=== PATIENT | female | born 1970 | race Caucasian/White ===

== ENCOUNTER 2020-07-24 | Outpatient (REF) | payer OTHER, SELFPAY ==
[2020-07-24 11:44] LABS: MANUAL DIFF FLAG NO
[2020-07-24 11:47] LABS: Basophils Percent Auto 0.4 % (0-2); Eosinophils Percent Auto 0.8 % (0-4); Hematocrit 38.6 % (37-47); Hemoglobin 12.2 g/dl (12.0-16.0); Imm Gran Abs Auto 0.03 X10*3/uL (0.00-0.03); Imm Gran Pct Auto 0.6 % (0.0-0.4); Lymphocytes Absolute Auto 1.2 X10*3/uL (1.2-4.9); Lymphocytes Percent Auto 22.5 % (20-40); Mean Corpuscular HGB Conc 31.6 g/dl (31.0-35.0); Mean Corpuscular Hemoglobin 28.1 pg (27.0-33.0); Mean Corpuscular Volume 88.9 fL (80-98); Mean Platelet Volume 11.6 fL (9.4-12.3); Monocytes Absolute Auto 0.3 X10*3/uL (0.1-1.2); Monocytes Percent Auto 6.3 % (2-11); Neutrophils Absolute Auto 3.6 X10*3/uL (2.0-8.3); Neutrophils Percent Auto 69.4 % (45-73); Platelet Count 214 X10*3/uL (160-400); Red Blood Count 4.34 X10*6/uL (4.20-5.50); Red Cell Distribution Width 13.7 % (11.0-16.0); White Blood Count 5.1 X10*3/uL (4.8-10.8)
[2020-07-24 12:13] LABS: Alanine Aminotransferase 15 U/L (0-31); Albumin Level 4.3 g/dL (3.5-5.0); Alkaline Phosphatase 51 U/L (39-117); Anion Gap 12 (12-20); Aspartate Amino Transferase 17 U/L (5-31); Bilirubin Total 0.6 mg/dL (0.0-1.0); Blood Urea Nitrogen 10 mg/dL (9-16); Calcium 8.7 mg/dL (8.4-10.2); Carbon Dioxide 23 mmol/L (22-29); Chloride 109 mmol/L (96-108); Cholesterol 220 mg/dL; Estimated Glomerular Filt Rate > 60; Glucose Random 98 mg/dL (60-115); HDL Cholesterol 55 mg/dL; LDL Cholesterol Calculated 153 mg/dl; Potassium 4.4 mmol/l (3.3-5.1); Sodium 140 mmol/L (135-145); Total Protein 7.3 g/dL (6.5-8.0); Triglycerides 64 mg/dL
[2020-07-24 12:35] LABS: Thyroid Stimulating Hormone 1.84 uIU/mL (0.32-4.0)
[2020-07-24 12:37] LABS: Vitamin B12 506 pg/mL (200-900)
== END 2020-07-24 00:01 | disposition home or self-care (01) ==
LOC: HO.LAB
PROVIDERS: PCP Internal Medicine; Visit Provider Internal Medicine
DX: R53.83 Other fatigue (principal); E78.00 Pure hypercholesterolemia, unspecified; M79.10 Myalgia, unspecified site; Z79.899 Other long term (current) drug therapy
CPT/HCPCS: 36415; 80053; 80061; 82607; 84443; 85025

== ENCOUNTER 2020-07-24 09:56 | Outpatient (REF) | payer OTHER, SELFPAY ==
--- NOTE | 2020-07-24 10:02 | MM_ITS ---
EXAMINATION: MM SCREENING DIGITAL BREAST TOMOSYNTHESIS, BILATERAL CLINICAL INFORMATION: Screening. Asymptomatic. The lifetime risk of breast cancer based on the Tyrer-Cuzick Model is 22.5%. COMPARISON: Mammography: 04/03/2018, 10/12/2016, and 10/07/2015 TECHNIQUE: Digital breast tomosynthesis is performed in both the craniocaudal and mediolateral oblique views along with computer-aided detection (CAD). Synthesized 2D images are generated from the tomosynthesis. FINDINGS: The breasts are extremely dense, which lowers the sensitivity of mammography (ACR BI-RADS breast composition Category d). Within the right breast superiorly approximately 4 cm from nipple, there is a 1.3 cm partially circumscribed density. No definite spiculation or suspicious calcifications identified. About the deep medial aspect of the left breast approximately 8 cm from the nipple, there are 3 adjacent densities, the largest of which measures approximately 1.3 x 0.7 cm in size with the other 2 measuring approximately 7 and 6 mm in diameter. No suspicious grouping of calcifications. MM/MM tomosynthesis screening BI IMPRESSION: Bilateral breast densities for which further evaluation with ultrasound is recommended. IMPRESSION: Bilateral breast densities for further evaluation, as described. ASSESSMENT: BI-RADS 0: Incomplete - Need additional imaging evaluation. RECOMMENDATION: Bilateral breast ultrasound.
== END 2020-07-24 09:57 | disposition home or self-care (01) ==
LOC: HO.MAMMO 09:56
PROVIDERS: PCP Internal Medicine; Visit Provider Internal Medicine
DX: Z12.31 Encounter for screening mammogram for malignant neoplasm of breast (principal)
CPT/HCPCS: 77063; 77067

== ENCOUNTER → 2020-09-03 08:39 | Outpatient (BNVA) | payer OTHER, SELFPAY | PROVIDERS: PCP Internal Medicine; Visit Provider Internal Medicine Gastroenterology | DX: Z76.89 Persons encountering health services in other specified circumstances (principal) ==

== ENCOUNTER 2020-09-21 11:07 | Outpatient (REF) | payer OTHER, SELFPAY | END 2020-09-21 11:08 | disposition home or self-care (01) | LOC: HO.LAB 11:07 | PROVIDERS: PCP Internal Medicine; Visit Provider Internal Medicine Cardiovascular Disease | DX: R06.02 Shortness of breath (principal); E78.00 Pure hypercholesterolemia, unspecified; R63.1 Polydipsia; R06.00 Dyspnea, unspecified; R07.89 Other chest pain; M79.10 Myalgia, unspecified site | CPT/HCPCS: 36415; 82550; 93005; 99202 ==

== ENCOUNTER → 2020-10-13 09:58 | Outpatient (REF) | payer OTHER, SELFPAY ==
--- NOTE | 2020-10-13 10:01 | CA_ITS ---
Acquisition Time: 2020-10-13 11:04:32 Total Exercise Time: 00:05:01 Test Indications: CP, SOB Medications: SEE CHART Protocol: ADAN Max HR: 160 BPM 94% of Pred: 170 BPM Max BP: 112/078 mmHG Max Work Load: 7.0 METS Exercise stress test using Adan protocol. Pt asked to terminate the test at 5 min d/t feeling SOB and fatiqued. Pt exercised for total of 5 min. METS 7.00 with TAPHR up to 94%. EKG without any arrhythmias, No ischemic changes seen during exercise or in recovery. Normotensive response to exercise. Test reviewed with DR. Castellanos Referred By: Juan J Rolle Overread By:
== END ==
LOC: HO.CARD 09:58
PROVIDERS: Visit Provider Internal Medicine Cardiovascular Disease
DX: R06.00 Dyspnea, unspecified (principal)
CPT/HCPCS: 93016; 93017; 93018

== ENCOUNTER → 2020-10-29 10:26 | Outpatient (BNVA) | payer OTHER, SELFPAY | PROVIDERS: PCP Internal Medicine; Visit Provider Internal Medicine Gastroenterology ==

== ENCOUNTER → 2020-11-06 09:30 | Outpatient (REF) | payer OTHER, SELFPAY ==
--- NOTE | 2020-11-06 09:32 | CA_ITS ---
Transthoracic Echocardiogram Patient (Last, First, Middle): Haydee Garsia J M Gender: Female Date of : 1970 Age: 50 Procedure Date: 11/06/2020 Procedure Type: Transthoracic Echocardiogram Location: OP Height: 165.1 cm Weight: 63.96 kg BSA: 1.71 m2 Heart Rate: bpm BP: 105 / 63 mmHg Silk Brusher: WINSTON Callejas MD: Juan J Rolle MD Operating Room Aide: Ray Mortensen MD Symptoms: R06.00 - Dyspnea, unspecified Study Quality: Good ECG Rhythm: Sinus Conclusions: - Essentially normal study Findings Left Ventricle Normal left ventricular size, thickness, and systolic function. The visually estimated ejection fraction is between 60-65%. Diastolic function is normal for age. Right Ventricle Normal right ventricular cavity size and systolic function. Atria Both atria are normal in size. There is no evidence of interatrial shunt. Aortic Valve Normal aortic valve structure and function. There is no aortic valve stenosis. There is no aortic valve regurgitation. Mitral Valve Normal mitral valve structure and function. There is trace mitral valve regurgitation. There is no mitral valve stenosis. Pulmonic Valve The pulmonic valve is likely normal. Tricuspid Valve Likely normal tricuspid valve structure and function. There is trace tricuspid valve regurgitation. The right ventricular systolic pressure is normal. The right ventricular systolic pressure is 22 mmHg. Normal right atrial pressure. There is no evidence of pulmonary hypertension. Great Vessels All visible segments of the aorta are normal in size. The pulmonary artery was not well visualized. Venous The inferior vena cava is normal in size and collapses greater than 50% with inspiration. Pericardium/Pleural There is no evidence of pericardial effusion. Prior Study Comparison No significant change compared to prior study dated: 01/06/2016. Measurements M-Mode Liner Measurements Normals - Women/Men AOV Cusps: 2.20 1.5-2.6 cm/m2 2D Linear Measurements IVSd: 0.86 0.6-0.9/0.6-1.0 cm LVIDd: 4.40 3.9-5.3/4.2-5.9 cm LVIDd Index: 2.57 2.4-3.2/2.2-3.1 cm/m2 LVIDs: 2.13 2.0-3.6 cm LVPWd: 0.82 0.7-1.1 cm Ao Root: 3.30 2.1-3.5 cm LA Diam: 2.60 2.7-3.8/3.0-4.0 cm LAIDs Index: 1.52 1.5-2.3 cm/m2 LV Mass: 144.35 67-162/88-224 g LV Mass Index: 84.41 43-95/49-115 g/m2 LVOT Diam: 1.90 3.0+(-)1.3 cm 2D Systolic Function EF 4C: 62.80 >55% EF 2C: 65.70 >55% EF BiP: 64.70 >55% Mitral Valve MV Pk E: 0.70 MV PK A: 0.49 MV Decel Time: 257.00 E/A: 1.40 E'Lateral: 18.90 E'Medial: 8.59 E/E' Med: 8.10 E/E' Lat: 3.70 PHT: 75.00 MVA PHT: 2.93 Decel Cascade: 2.72 Aortic Valve AoV Pk Everett: 1.15 AoV Pk Grad: 5.00 LVOT LVOT Pk Everett: 0.84 LVOT Mn Everett: 0.63 LVOT VTI: 0.16 LVOT Pk Grad: 3.00 LVOT Mn Grad: 2.00 LVOT Diam: 1.90 LVOT Area: 2.84 Diastolic Function MV Pk E: 0.70 MV Pk A: 0.49 E/A: 1.40 E'Medial: 8.59 E/E' Med: 8.10 E' Laterial: 18.90 E/E' Lat: 3.70 Tricuspid Valve TR Pk Everett: 2.16 TR Pk Grad: 19.00 RA Press: 3.00 RVSP: 22.00 Great Vessels Aorta Ao Root-2D: 3.30 2.0-3.7 cm Ao Asc: 3.00 2.1-3.4 cm Ao Arch: 2.10 Pulmonary Valve PV Pk Everett: 0.92 Peak PV Grad: 3.00 Updated in Other Vendor System with Status of Final Ray Mortensen MD electronically signed on 11/07/2020 2:29:09 PM with status of Final
== END ==
LOC: HO.CARD 09:30
PROVIDERS: Visit Provider Internal Medicine Cardiovascular Disease
DX: R06.00 Dyspnea, unspecified (principal)
CPT/HCPCS: 93306

== ENCOUNTER → 2020-11-09 11:59 | Outpatient (BNVA) | payer OTHER, SELFPAY | PROVIDERS: PCP Internal Medicine; Visit Provider Internal Medicine Cardiovascular Disease | DX: R07.89 Other chest pain (principal); R63.1 Polydipsia | CPT/HCPCS: 99212 ==

== ENCOUNTER 2020-11-19 09:19 | Outpatient (REF) | payer OTHER, SELFPAY ==
[2020-11-19 12:06] LABS: Alanine Aminotransferase 16 U/L (0-31); Albumin Level 4.3 g/dL (3.5-5.0); Alkaline Phosphatase 56 U/L (39-117); Anion Gap 12 (12-20); Aspartate Amino Transferase 16 U/L (5-31); Bilirubin Total 0.6 mg/dL (0.0-1.0); Blood Urea Nitrogen 8 mg/dL (9-16); Calcium 8.6 mg/dL (8.4-10.2); Carbon Dioxide 25 mmol/L (22-29); Chloride 110 mmol/L (96-108); Cholesterol 120 mg/dL; Estimated Glomerular Filt Rate > 60; Glucose Fasting 88 mg/dL (60-99); HDL Cholesterol 42 mg/dL; LDL Cholesterol Calculated 62 mg/dl; Potassium 4.2 mmol/L (3.3-5.1); Sodium 143 mmol/L (135-145); Total Protein 7.1 g/dL (6.5-8.0); Triglycerides 80 mg/dL
== END 2020-11-19 09:20 | disposition home or self-care (01) ==
LOC: HO.HMGCLDS 09:19
PROVIDERS: PCP Internal Medicine; Visit Provider Internal Medicine
DX: E78.00 Pure hypercholesterolemia, unspecified (principal); R00.2 Palpitations; R42 Dizziness and giddiness; R53.83 Other fatigue
CPT/HCPCS: 36415; 80053; 80061

== ENCOUNTER → 2021-02-01 09:24 | Outpatient (BNVA) | payer OTHER, SELFPAY | PROVIDERS: Visit Provider Internal Medicine Gastroenterology ==

== ENCOUNTER 2021-02-02 12:24 | Outpatient (REF) | payer OTHER, SELFPAY ==
--- NOTE | ~2021-02-02 | XR_ITS ---
EXAMINATION: XR CHEST CLINICAL INFORMATION: Chest pain COMPARISON: Previous chest x-ray May 2012 TECHNIQUE: 2 views of the chest were obtained. FINDINGS: The cardiac and mediastinal contours are normal. There is question of a right upper lobe pulmonary nodule measuring 4 mm. This overlies the right second rib. This is unchanged from May 2012 exam. It is possible this could represent a bone island in the rib as well. There is question of a 4 mm infrahilar nodule at the right lung base. This also appears unchanged from May 2012. The lungs are otherwise clear. There is no pleural effusion or pneumothorax. Bony structures are unremarkable. XR/XR chest 2V IMPRESSION: Question 2 small right pulmonary nodules stable from May 2012 exam. Otherwise unremarkable exam.
== END 2021-02-02 12:25 | disposition home or self-care (01) ==
LOC: HO.XRAY 12:24
PROVIDERS: PCP Internal Medicine; Visit Provider Internal Medicine
DX: R07.9 Chest pain, unspecified (principal)
CPT/HCPCS: 71046

== ENCOUNTER 2021-02-02 12:27 | Outpatient (REF) | payer OTHER, SELFPAY | END 2021-02-02 12:28 | disposition home or self-care (01) | LOC: HO.LAB 12:27 | PROVIDERS: PCP Internal Medicine; Visit Provider Internal Medicine | DX: Z20.822 Contact with and (suspected) exposure to COVID-19 (principal) | CPT/HCPCS: C9803; U0003; U0005 ==

== ENCOUNTER 2021-02-15 13:33 | Outpatient (REF) | payer OTHER, SELFPAY ==
--- NOTE | ~2021-02-15 | MM_ITS ---
EXAMINATION: MM DIAGNOSTIC DIGITAL BREAST TOMOSYNTHESIS, LEFT TARGETED LEFT BREAST ULTRASOUND ([id number]) CLINICAL INFORMATION: Palpable abnormality upper outer quadrant. The lifetime risk of breast cancer based on the Tyrer-Cuzick Model is 13.8%. COMPARISON: Mammography: 07/24/2020 and studies dating back to 10/07/2015. TECHNIQUE: Digital breast tomosynthesis is performed in both the craniocaudal and mediolateral oblique views along with computer-aided detection (CAD). Synthesized 2D images are generated from the tomosynthesis. Targeted left breast ultrasound. FINDINGS: The breasts are extremely dense, which lowers the sensitivity of mammography (ACR BI-RADS breast composition Category d). There are some circumscribed densities seen within the superior, lateral, and medial left breast. No suspicious spiculated masses are identified. Targeted left breast ultrasound was then performed. There are numerous simple and complex cysts present. At approximately the 10 o'clock position, 7 cm from nipple there is a circumscribed hypoechoic lesion without internal vascularity and with distal sound enhancement which may represent a complex cyst or solid structure. This measures approximately 6 mm in diameter. Results are discussed with the patient at time of visit. MM/MM tomosynthesis diagnostic LT IMPRESSION: Numerous left breast simple and complex cysts. 6-month follow up left breast ultrasound is recommended. ASSESSMENT: BI-RADS 3: Probably Benign RECOMMENDATION: Diagnostic ultrasound in 6 months. This patient's information was entered into a reminder system with a target due date for their next mammogram.
--- NOTE | ~2021-02-15 | US_ITS ---
EXAMINATION: US DIAGNOSTIC ULTRASOUND BREAST, LEFT CLINICAL INFORMATION: Palpable abnormality upper outer quadrant left breast. COMPARISON: Mammography of same day and dating back to October 07, 2015. TECHNIQUE: Ultrasound of the breast is performed with real-time fermin scale imaging and color Doppler. FINDINGS: Targeted left breast ultrasound was then performed. There are numerous simple and complex cysts present. At approximately the 10:00 position 7 cm from nipple there is a circumscribed hypoechoic lesion without internal vascularity and with distal sound enhancement which may represent a complex cyst or solid structure. This measures approximately 6 mm in diameter. Results are discussed with the patient at time of visit. US/US breast LT limited IMPRESSION: Numerous left breast simple and complex cysts. 6 month follow-up left breast ultrasound is recommended. ASSESSMENT: BI-RADS 3: Probably Benign RECOMMENDATION: Diagnostic ultrasound in 6 months. .
== END 2021-02-15 13:34 | disposition home or self-care (01) ==
LOC: HO.MAMMO 13:33
PROVIDERS: Visit Provider Internal Medicine
DX: N63.21 Unspecified lump in the left breast, upper outer quadrant (principal)
CPT/HCPCS: 76642; 77061; 77065

== ENCOUNTER 2021-05-03 12:37 | Outpatient (REF) | payer OTHER, SELFPAY ==
[2021-05-03 14:38] LABS: Alanine Aminotransferase 18 U/L (0-31); Albumin Level 4.7 g/dL (3.5-5.0); Alkaline Phosphatase 55 U/L (39-117); Anion Gap 11 (12-20); Aspartate Amino Transferase 19 U/L (5-31); Bilirubin Total 0.8 mg/dL (0.0-1.0); Blood Urea Nitrogen 8 mg/dL (9-16); Calcium 9.8 mg/dL (8.4-10.2); Carbon Dioxide 26 mmol/L (22-29); Chloride 108 mmol/L (96-108); Estimated Glomerular Filt Rate > 60; Glucose Random 95 mg/dL (60-115); Potassium 4.4 mmol/L (3.3-5.1); Sodium 141 mmol/L (135-145); Total Protein 7.7 g/dL (6.5-8.0)
[2021-05-03 14:58] LABS: Thyroid Stimulating Hormone 1.44 uIU/mL (0.32-4.0)
== END 2021-05-03 12:38 | disposition home or self-care (01) ==
LOC: HO.HMGCLDS 12:37
PROVIDERS: PCP Internal Medicine; Visit Provider Internal Medicine
DX: R07.9 Chest pain, unspecified (principal); E78.00 Pure hypercholesterolemia, unspecified; R00.2 Palpitations; R06.02 Shortness of breath
CPT/HCPCS: 36415; 80053; 84443

== ENCOUNTER 2021-08-18 12:52 | Outpatient (REF) | payer OTHER, SELFPAY ==
--- NOTE | ~2021-08-18 | US_ITS ---
EXAMINATION: US DIAGNOSTIC ULTRASOUND BREAST, LEFT CLINICAL INFORMATION: Short interval six-month follow-up probable benign nodule versus foam cyst upper inner left breast. COMPARISON: Mammography 02/15/2021, left breast ultrasound 02/15/2021, outside left breast ultrasound 04/03/2018 ([facility] TECHNIQUE: Ultrasound left breast is targeted to the upper inner quadrant. Grayscale imaging and color Doppler are performed without and with harmonics. FINDINGS: The nodule for follow-up 10:00 position 7 cm from nipple is stable, measuring approximately 0.7 x 0.6 cm. Margins are smooth. There are geographic internal echoes which may suggest apocrine metaplasia. There is no associated peripheral or internal color flow. Finding will be reassessed again at time of annual bilateral diagnostic mammography. There are some other scattered cysts again seen in the upper inner left breast as noted previously. There is no interval mass or architectural abnormality. Results are provided to the patient at time of visit by the technologist. US/US breast LT limited IMPRESSION: 1. Probable benign nodule 10:00 left breast under 1 cm, stable from prior exam 02/15/2021. 2. Scattered fibrocystic changes upper inner quadrant. ASSESSMENT: BI-RADS 3: Probably Benign RECOMMENDATION: Targeted left breast ultrasound at time of annual bilateral diagnostic mammography, due in 6 months. This patient's information was entered into a reminder system with a target due date for their next mammogram.
== END 2021-08-18 12:53 | disposition home or self-care (01) ==
LOC: HO.MAMMO 12:52
PROVIDERS: Visit Provider Internal Medicine
DX: R92.2 Inconclusive mammogram (principal)
CPT/HCPCS: 76642

== ENCOUNTER 2021-10-28 08:54 | Outpatient (REF) | payer OTHER, SELFPAY ==
[2021-10-28 10:33] LABS: MANUAL DIFF FLAG NO
[2021-10-28 11:06] LABS: Basophils Percent Auto 0.5 % (0-2); Eosinophils Absolute Auto 0.1 X10*3/uL (0.0-0.4); Eosinophils Percent Auto 2.1 % (0-4); Hematocrit 41.6 % (37.0-47.0); Imm Gran Abs Auto 0.01 X10*3/uL (0.00-0.03); Imm Gran Pct Auto 0.2 % (0.0-0.4); Lymphocytes Absolute Auto 1.1 X10*3/uL (1.2-4.9); Lymphocytes Percent Auto 19.1 % (20-40); Mean Corpuscular HGB Conc 31.3 g/dl (31.0-35.0); Mean Corpuscular Hemoglobin 28.1 pg (27.0-33.0); Mean Platelet Volume 11.2 fL (9.4-12.3); Monocytes Absolute Auto 0.3 X10*3/uL (0.1-1.2); Monocytes Percent Auto 5.7 % (2-11); Neutrophils Absolute Auto 4.1 x10*3/uL (2.0-8.3); Neutrophils Percent Auto 72.4 % (45-73); Platelet Count 230 X10*3/uL (160-400); Red Blood Count 4.62 X10*6/uL (4.20-5.50); Red Cell Distribution Width 14.1 % (11.0-16.0); White Blood Count 5.6 X10*3/uL (4.8-10.8)
[2021-10-28 11:12] LABS: INTERNATIONAL NORM RATIO 1.1 (0.9-1.1); Prothrombin Time 12.4 SEC (9.9-13.0)
[2021-10-28 11:15] LABS: Partial Thromboplastin Time 30.8 SEC (24.1-38.0)
[2021-10-28 11:43] LABS: Alanine Aminotransferase 21 U/L (0-31); Albumin Level 4.3 g/dL (3.5-5.0); Alkaline Phosphatase 56 U/L (39-117); Anion Gap 10 (12-20); Aspartate Amino Transferase 20 U/L (5-31); Bilirubin Total 0.7 mg/dL (0.0-1.0); Blood Urea Nitrogen 10 mg/dL (9-16); Calcium 9.3 mg/dL (8.4-10.2); Carbon Dioxide 28 mmol/L (22-29); Chloride 106 mmol/L (96-108); Estimated Glomerular Filt Rate > 60; Glucose Fasting 94 mg/dL (60-99); Potassium 4.9 mmol/L (3.3-5.1); Sodium 139 mmol/L (135-145); Total Protein 7.2 g/dL (6.5-8.0)
[2021-10-28 11:54] LABS: Vitamin D 25-OH Total 28.9 ng/mL (>30)
[2021-10-28 12:13] LABS: Folate 13.5 ng/mL (> or = 4.0); Vitamin B12 421 pg/mL (200-900)
[2021-11-01 21:50] LABS: Zinc 64 mcg/dL (60-130)
== END 2021-10-28 08:55 | disposition home or self-care (01) ==
LOC: HO.LAB 08:54
PROVIDERS: PCP Internal Medicine; Referring Provider Internal Medicine; Visit Provider Internal Medicine Gastroenterology
DX: R10.10 Upper abdominal pain, unspecified (principal); R19.7 Diarrhea, unspecified; K21.9 Gastro-esophageal reflux disease without esophagitis; R55 Syncope and collapse; R07.89 Other chest pain
CPT/HCPCS: 36415; 80053; 82306; 82607; 82746; 84630; 85025; 85610; 85730; 99212

== ENCOUNTER 2022-01-26 12:15 | Outpatient (REF) | payer OTHER, SELFPAY ==
--- NOTE | ~2022-01-26 | MM_ITS ---
EXAMINATION: MM DIAGNOSTIC DIGITAL BREAST TOMOSYNTHESIS, BILATERAL US BREAST TARGETED, LEFT CLINICAL INFORMATION: Bilateral mammography with targeted left breast ultrasound for left breast nodule. The lifetime risk of breast cancer based on the Tyrer-Cuzick Model is 14.3%. COMPARISON: Mammography: 02/15/2021 and studies dating back to 10/07/2015. TECHNIQUE: Digital breast tomosynthesis is performed in both the craniocaudal and mediolateral oblique views along with computer-aided detection (CAD). Synthesized 2D images are generated from the tomosynthesis. Targeted left breast ultrasound. FINDINGS: The breasts are extremely dense, which lowers the sensitivity of mammography (ACR BI-RADS breast composition Category d). There are no new significant masses, abnormal calcifications, or other abnormalities. Targeted left breast ultrasound again demonstrated numerous majority simple cysts with a few minimally complex cysts being present. There is a stable solid-appearing density with increased through sound transmission seen at the 10 o'clock position 7 cm from nipple which is stable measuring approximately 6 x 6 x 5 mm in size. Recommend 1 year followup mammography and left breast ultrasound. Results are provided to the patient at time of visit by the technologist. MM/MM tomosynthesis diagnostic BI IMPRESSION: There are no significant changes from prior study. ASSESSMENT: BI-RADS 3: Probably Benign RECOMMENDATION: Diagnostic mammography at time of next annual exam, due in 12 months. This patient's information was entered into a reminder system with a target due date for their next mammogram.
== END 2022-01-26 12:16 | disposition home or self-care (01) ==
LOC: HO.MAMMO 12:15
PROVIDERS: PCP Internal Medicine; Visit Provider Internal Medicine
DX: R92.2 Inconclusive mammogram (principal)
CPT/HCPCS: 76642; 77062; 77066

== ENCOUNTER 2022-01-27 10:37 | Outpatient (REF) | payer OTHER, SELFPAY ==
[2022-01-27 10:50] LABS: MANUAL DIFF FLAG NO
[2022-01-27 11:16] LABS: Basophils Percent Auto 0.3 % (0-2); Eosinophils Percent Auto 0.7 % (0-4); Hematocrit 41.9 % (37.0-47.0); Hemoglobin 13.3 g/dl (12.0-16.0); Imm Gran Abs Auto 0.01 X10*3/uL (0.00-0.03); Imm Gran Pct Auto 0.2 % (0.0-0.4); Lymphocytes Absolute Auto 1.1 X10*3/uL (1.2-4.9); Lymphocytes Percent Auto 18.8 % (20-40); Mean Corpuscular HGB Conc 31.7 g/dl (31.0-35.0); Mean Corpuscular Hemoglobin 28.9 pg (27.0-33.0); Mean Corpuscular Volume 90.9 fL (80.0-98.0); Mean Platelet Volume 10.8 fL (9.4-12.3); Monocytes Absolute Auto 0.4 X10*3/uL (0.1-1.2); Monocytes Percent Auto 6.6 % (2-11); Neutrophils Absolute Auto 4.2 x10*3/uL (2.0-8.3); Neutrophils Percent Auto 73.4 % (45-73); Platelet Count 188 X10*3/uL (160-400); Red Blood Count 4.61 X10*6/uL (4.20-5.50); Red Cell Distribution Width 13.6 % (11.0-16.0); White Blood Count 5.7 X10*3/uL (4.8-10.8)
[2022-01-27 11:59] LABS: Alanine Aminotransferase 16 U/L (0-31); Albumin Level 4.4 g/dL (3.5-5.0); Alkaline Phosphatase 45 U/L (39-117); Anion Gap 12 (12-20); Aspartate Amino Transferase 16 U/L (5-31); Bilirubin Total 0.6 mg/dL (0.0-1.0); Blood Urea Nitrogen 10 mg/dL (9-16); Calcium 9.1 mg/dL (8.4-10.2); Carbon Dioxide 23 mmol/L (22-29); Chloride 108 mmol/L (96-108); Cholesterol 165 mg/dL; Estimated Glomerular Filt Rate > 60; Glucose Random 100 mg/dL (60-115); HDL Cholesterol 52 mg/dL; LDL Cholesterol Calculated 99 mg/dl; Potassium 4.6 mmol/L (3.3-5.1); Sodium 138 mmol/L (135-145); Total Protein 7.3 g/dL (6.5-8.0); Triglycerides 74 mg/dL
[2022-01-27 12:20] LABS: Thyroid Stimulating Hormone 2.63 uIU/mL (0.32-4.0)
== END 2022-01-27 10:38 | disposition home or self-care (01) ==
LOC: HO.LAB 10:37
PROVIDERS: Visit Provider Internal Medicine
DX: Z00.00 Encounter for general adult medical examination without abnormal findings (principal); E78.00 Pure hypercholesterolemia, unspecified; I49.8 Other specified cardiac arrhythmias; M60.9 Myositis, unspecified; Z13.31 Encounter for screening for depression
CPT/HCPCS: 36415; 80053; 80061; 84443; 85025

== ENCOUNTER → 2022-05-25 13:27 | Outpatient (BNVA) | payer OTHER, SELFPAY | PROVIDERS: PCP Internal Medicine; Referring Provider Internal Medicine; Visit Provider Nurse Practitioner Family | DX: R55 Syncope and collapse (principal); R00.2 Palpitations; K21.9 Gastro-esophageal reflux disease without esophagitis | CPT/HCPCS: 99212 ==

== ENCOUNTER → 2022-06-24 10:11 | Outpatient (REF) | payer OTHER, SELFPAY ==
--- NOTE | 2022-06-24 10:21 | CA_ITS ---
Transthoracic Echocardiogram Patient (Last, First, Middle): Haydee Garsia J M Gender: Female Date of : 1970 Age: 51 Procedure Date: 06/24/2022 Procedure Type: Transthoracic Echocardiogram Location: OP Height: 165.1 cm Weight: 63.5 kg BSA: 1.70 m2 Heart Rate: bpm BP: 88 / 60 mmHg Software Security Consultant: TO Referring MD: Kailey Chilel WOOD STAINER-C Symptoms: R00.2 - Palpitations Study Quality: Fair ECG Rhythm: Sinus Conclusions: - The left ventricular systolic function is normal. The calculated ejection fraction is 56% by biplane method. - No obvious valvular pathology seen on this study. - Prominent coronary sinus. - The inferior vena cava is mildly dilated and collapses greater than 50% with inspiration. Findings Left Ventricle Normal left ventricular cavity size. There is normal left ventricular wall thickness. The left ventricular systolic function is normal. The calculated ejection fraction is 56% by biplane method. There is no evidence of regional wall motion abnormalities. Diastolic function is normal for age. Right Ventricle Normal right ventricular cavity size and systolic function. Atria Both atria are normal in size. There is no evidence of interatrial shunt by color Doppler. Aortic Valve There is a normal trileaflet aortic valve. There is no aortic valve stenosis. There is no aortic valve regurgitation. Mitral Valve The mitral valve appears normal. There is no mitral valve regurgitation. There is no mitral valve stenosis. Pulmonic Valve The pulmonic valve is likely normal. Tricuspid Valve Normal tricuspid valve structure. There is trace tricuspid valve regurgitation. There is no evidence of pulmonary hypertension. Prominent coronary sinus. Great Vessels The aortic annulus, sinuses of valsalva, and asc aorta are normal in size. Venous The inferior vena cava is mildly dilated and collapses greater than 50% with inspiration. Pericardium/Pleural There is no evidence of pericardial effusion. Prior Study Comparison Changes noted compared to prior study dated: 11/06/2020. Coronary sinus finding not previously described. Recommendations, Care & Conclusions No obvious valvular pathology seen on this study. Measurements 2D Linear Measurements IVSd: 0.92 0.6-0.9/0.6-1.0 cm LVIDd: 4.43 3.9-5.3/4.2-5.9 cm LVIDd Index: 2.61 2.4-3.2/2.2-3.1 cm/m2 LVIDs: 2.44 2.0-3.6 cm LVPWd: 0.75 0.7-1.1 cm LA Diam: 2.80 2.7-3.8/3.0-4.0 cm LAIDs Index: 1.65 1.5-2.3 cm/m2 LV Mass: 144.95 67-162/88-224 g LV Mass Index: 85.26 43-95/49-115 g/m2 LVOT Diam: 2.00 3.0+(-)1.3 cm 2D Systolic Function EF 4C: 54.00 >55% EF 2C: 58.90 >55% EF BiP: 56.20 >55% Mitral Valve MV Pk E: 0.72 MV PK A: 0.38 MV Decel Time: 242.00 E/A: 1.90 E'Lateral: 17.30 E'Medial: 10.00 E/E' Med: 7.20 E/E' Lat: 4.20 PHT: 71.00 MVA PHT: 3.10 Decel Humphreys: 2.98 Aortic Valve AoV Pk Everett: 1.12 AoV Mn Everett: 0.78 AoV VTI: 0.23 AoV Pk Grad: 5.00 Aov Mn Grad: 3.00 KAYLEY Cont.VTI: 2.44 LVOT LVOT Pk Everett: 0.92 LVOT Mn Everett: 0.57 LVOT VTI: 0.18 LVOT Pk Grad: 3.00 LVOT Mn Grad: 2.00 LVOT Diam: 2.00 LVOT Area: 3.14 Diastolic Function MV Pk E: 0.72 MV Pk A: 0.38 E/A: 1.90 E'Medial: 10.00 E/E' Med: 7.20 E' Laterial: 17.30 E/E' Lat: 4.20 Right Ventricle TAPSE (mm): 21.80 TVS' Everett: 11.50 Tricuspid Valve TR Pk Everett: 2.12 TR Pk Grad: 18.00 RA Press: 8.00 RVSP: 26.00 Great Vessels Aorta Sinus of Valsalva: 2.32 2.0-3.5 cm Ao Asc: 3.20 2.1-3.4 cm Updated in Other Vendor System with Status of Final Ramiro Castellanos MD electronically signed on 06/25/2022 12:00:50 PM with status of Final
--- NOTE | 2022-06-24 10:21 | HM_ITS ---
* Total monitoring time 7 days. * Average ventricular rate 74/Min. Range 51 to 136/Min. * Very rare PACs/PVCs with minimal burden. * No significant pauses or AV blocks. * Symptoms mentioned in diary include not feeling well, pain, heartburn but no times mentioned. MTDD
== END ==
LOC: HO.CARD 10:11
PROVIDERS: PCP Internal Medicine; Visit Provider Nurse Practitioner Family
DX: R00.2 Palpitations (principal); R55 Syncope and collapse
CPT/HCPCS: 93242; 93306

== ENCOUNTER → 2022-09-06 13:44 | Outpatient (BNVA) | payer OTHER, SELFPAY | PROVIDERS: PCP Internal Medicine; Referring Provider Internal Medicine; Visit Provider Nurse Practitioner Family | DX: R55 Syncope and collapse (principal); R00.2 Palpitations; E78.5 Hyperlipidemia, unspecified | CPT/HCPCS: 99212 ==

== ENCOUNTER 2022-09-09 10:41 | Outpatient (REF) | payer OTHER, SELFPAY ==
--- NOTE | ~2022-09-09 | US_ITS ---
EXAMINATION: US EXTRACRANIAL CAROTID DUPLEX, BILATERAL CLINICAL INFORMATION: Syncope and collapse. COMPARISON: None TECHNIQUE: Real-time ultrasound and Doppler techniques (integrating B-mode 2-D vascular images, Doppler spectral analysis and color-flow Doppler imaging) were utilized to interrogate the extracranial carotid arteries, the vertebral arteries and proximal subclavian arteries bilaterally. The degree of stenosis is determined by criteria similar to NASCET. FINDINGS: Right Side: 1. There is no atherosclerotic plaque seen in the bifurcation/proximal ICA region. 2. The common carotid artery PSV proximally is 126 cm/s and distally 117 cm/s. 3. The proximal internal carotid artery velocities are 124 cm/s systolic and 27 cm/s diastolic. 4. The proximal external carotid artery PSV is 111 cm/s. 5. The vertebral artery shows antegrade flow. 6. The subclavian artery waveforms are normal. Left Side: 1. There is no atherosclerotic plaque seen in the bifurcation/proximal ICA region. 2. The common carotid artery PSV proximally is 123 cm/s and distally 106 cm/s. 3. The proximal internal carotid artery velocities are 71 cm/s systolic and 20 cm/s diastolic. 4. The proximal external carotid artery PSV is 99 cm/s. 5. The vertebral artery shows antegrade flow. 6. The subclavian artery waveforms are normal. US/US carotid duplex BI IMPRESSION: 1. RIGHT: Normal right internal carotid artery without atherosclerotic plaque or hemodynamically significant stenosis. 2. LEFT: Normal left internal carotid artery without atherosclerotic plaque or hemodynamically significant stenosis.
== END 2022-09-09 10:42 | disposition home or self-care (01) ==
LOC: HO.HMGCX 10:41
PROVIDERS: PCP Internal Medicine; Visit Provider Nurse Practitioner Family
DX: R55 Syncope and collapse (principal); E78.00 Pure hypercholesterolemia, unspecified
CPT/HCPCS: 93880

== ENCOUNTER → 2022-10-06 10:54 | Outpatient (BNVA) | payer OTHER, SELFPAY | PROVIDERS: PCP Internal Medicine; Visit Provider Internal Medicine Gastroenterology | DX: K21.9 Gastro-esophageal reflux disease without esophagitis (principal); R19.7 Diarrhea, unspecified; R10.10 Upper abdominal pain, unspecified; R07.89 Other chest pain | CPT/HCPCS: 99212 ==

== ENCOUNTER → 2022-11-17 11:12 | Outpatient (BNVA) | payer OTHER, SELFPAY | PROVIDERS: PCP Internal Medicine; Referring Provider Internal Medicine; Visit Provider Internal Medicine Cardiovascular Disease | DX: R55 Syncope and collapse (principal) | CPT/HCPCS: 93005; 99212 ==

== ENCOUNTER 2022-12-14 14:37 | Outpatient (REF) | payer OTHER, SELFPAY ==
[2022-12-14 15:32] LABS: Basophils Percent Auto 0.7 % (0-2); Eosinophils Percent Auto 0.7 % (0-4); Hematocrit 45.3 % (37.0-47.0); Hemoglobin 14.5 g/dl (12.0-16.0); Imm Gran Abs Auto 0.01 X10*3/uL (0.00-0.03); Imm Gran Pct Auto 0.4 % (0.0-0.4); Lymphocytes Absolute Auto 0.7 X10*3/uL (1.2-4.9); Lymphocytes Percent Auto 26.7 % (20-40); MANUAL DIFF FLAG NO; Mean Corpuscular Hemoglobin 29.4 pg (27.0-33.0); Mean Corpuscular Volume 91.7 fL (80.0-98.0); Mean Platelet Volume 11.9 fL (9.4-12.3); Monocytes Absolute Auto 0.5 X10*3/uL (0.1-1.2); Monocytes Percent Auto 16.2 % (2-11); Neutrophils Absolute Auto 1.5 x10*3/uL (2.0-8.3); Neutrophils Percent Auto 55.3 % (45-73); Platelet Count 189 X10*3/uL (160-400); Red Blood Count 4.94 X10*6/uL (4.20-5.50); Red Cell Distribution Width 11.9 % (11.0-16.0); White Blood Count 2.8 X10*3/uL (4.8-10.8)
[2022-12-14 16:40] LABS: Erythrocyte Sedimentation Rate 6 MM/HR (0-20)
[2022-12-14 18:29] LABS: Alanine Aminotransferase 25 U/L (0-31); Albumin Level 4.7 g/dL (3.5-5.0); Alkaline Phosphatase 65 U/L (39-117); Anion Gap 16 (12-20); Aspartate Amino Transferase 23 U/L (5-31); Bilirubin Total 0.4 mg/dL (0.0-1.0); Blood Urea Nitrogen 11 mg/dL (9-16); Calcium 9.4 mg/dL (8.4-10.2); Carbon Dioxide 26 mmol/L (22-29); Chloride 106 mmol/L (96-108); Cholesterol 229 mg/dL; Estimated Glomerular Filt Rate > 60; Glucose Random 95 mg/dL (60-115); HDL Cholesterol 54 mg/dL; LDL Cholesterol Calculated 158 mg/dl; Sodium 143 mmol/L (135-145); Total Protein 7.8 g/dL (6.5-8.0); Triglycerides 87 mg/dL
[2022-12-16 15:54] LABS: Streptolysin O Antibody 133 IU/mL (<200)
== END 2022-12-14 14:38 | disposition home or self-care (01) ==
LOC: HO.LAB 14:37
PROVIDERS: PCP Internal Medicine; Visit Provider Internal Medicine
DX: Z00.00 Encounter for general adult medical examination without abnormal findings (principal); E78.00 Pure hypercholesterolemia, unspecified; F32.81 Premenstrual dysphoric disorder; R55 Syncope and collapse; J02.9 Acute pharyngitis, unspecified; R07.1 Chest pain on breathing; R20.3 Hyperesthesia; R21 Rash and other nonspecific skin eruption
CPT/HCPCS: 36415; 80053; 80061; 85025; 85652; 86060

== ENCOUNTER 2023-02-01 11:00 | Outpatient (REF) | payer OTHER, SELFPAY ==
--- NOTE | ~2023-02-01 | MM_ITS ---
EXAMINATION: MM DIAGNOSTIC DIGITAL BREAST TOMOSYNTHESIS, BILATERAL US DIAGNOSTIC ULTRASOUND BREAST, LEFT CLINICAL INFORMATION: Due for yearly. Also follow-up probable benign acorn cyst/apocrine metaplasia upper left breast. The lifetime risk of breast cancer based on the Tyrer-Cuzick Model is 15%. COMPARISON: Mammography 01/26/2022, 02/15/2021, 07/24/2020 (BI-RADS 0), outside mammography 04/03/2018 ([facility]); left breast ultrasound 02/15/2021, 08/18/2021, 01/26/2022. TECHNIQUE: Digital breast tomosynthesis is performed in both the craniocaudal and mediolateral oblique views along with computer-aided detection (CAD). Synthesized 2D images are generated from the tomosynthesis. Additional right cleavage view is obtained. Ultrasound left breast is targeted to the upper inner quadrant for follow-up of the probable benign nodule previously described. Grayscale imaging and color Doppler are performed without and with harmonics. FINDINGS: The breasts are heterogeneously dense, which may obscure small masses (ACR BI-RADS breast composition Category c). Breast tissue composition borders on extremely dense. Again, there is a fibronodular parenchymal pattern. There is no developing density or interval mass or architectural abnormality. Nodular asymmetry mid central upper right breast noted in 2019 is no longer demonstrated. There are no abnormal calcifications. The axilla and skin contours are unremarkable. Ultrasound left breast demonstrates stable acorn cyst, suspected apocrine metaplasia 10:00 position 7 cm from nipple measuring approximately 0.7 x 0.6 cm. No associated internal or peripheral color flow. No significant changes from prior ultrasound studies. Finding now considered to be benign. Results are provided to the patient at time of visit by the technologist. MM/MM tomosynthesis diagnostic BI IMPRESSION: -No mammographic evidence of malignancy. -The benign-appearing complicated cyst 10:00 left breast is stable, now considered to be benign. ASSESSMENT: BI-RADS 2: Benign RECOMMENDATION: Routine annual mammography screening. This patient's information was entered into a reminder system with a target due date for their next mammogram.
== END 2023-02-01 11:01 | disposition home or self-care (01) ==
LOC: HO.MAMMO 11:00
PROVIDERS: PCP Internal Medicine; Visit Provider Internal Medicine
DX: N60.02 Solitary cyst of left breast (principal)
CPT/HCPCS: 76642; 77062; 77066

== ENCOUNTER → 2023-06-06 10:58 | Outpatient (REF) | payer OTHER, SELFPAY ==
--- NOTE | 2023-06-06 14:38 | HM_ITS ---
Cardiac event monitor Indication: Palpitations Technique: Patient was hooked up to cardiac event monitor on 06/06/2023 for total period of 30 days. Compliance rate was 75% Findings: Baseline was normal sinus rhythm with no significant pauses. Lowest heart rate was 58 beats per minute and fastest heart of 131 beats per minute in a short run of atrial tachycardia. Rare PACs were noted. One episode of PAT noted lasting 8 beats. Patient did not report any symptoms. Conclusion: 1. Baseline was normal sinus rhythm with no pauses 2. Rare PACs with 1 short run of PAT 3. No patient reported symptoms MTDD
== END ==
LOC: HO.CARD 10:58
PROVIDERS: PCP Internal Medicine; Visit Provider Nurse Practitioner Family
DX: R00.2 Palpitations (principal); R55 Syncope and collapse
CPT/HCPCS: 93242; 93270

== ENCOUNTER → 2023-06-06 14:38 | Outpatient (BNV) | payer OTHER, SELFPAY | PROVIDERS: PCP Internal Medicine; Visit Provider Internal Medicine Cardiovascular Disease | DX: I49.1 Atrial premature depolarization (principal) | CPT/HCPCS: 93244 ==

== ENCOUNTER 2023-11-17 11:31 | Outpatient (REF) | payer OTHER, SELFPAY ==
--- NOTE | ~2023-11-17 | XR_ITS ---
EXAMINATION: XR LUMBOSACRAL SPINE WITH OBLIQUES CLINICAL INFORMATION: Spondylosis, lumbar region COMPARISON: None available. TECHNIQUE: AP, both oblique, and lateral views of the lumbar spine. Lateral view of the lumbosacral junction. FINDINGS: There is straightening of the usual lumbar lordosis which can be seen with muscle spasm. There are 5 nonrib-bearing lumbar-type vertebral bodies. The height of vertebral bodies is well-maintained. There is no significant disc space narrowing. There is degenerative facet joint disease at L5-S1. There is mild anterolisthesis of L4 with respect to L5. Question of L5 spondylolysis. XR/XR lumbar spine 4V min IMPRESSION: 1. Muscle spasm. 2. Mild anterolisthesis of L4 with respect to L5. Question of L5 spondylolysis. CT scan or MRI scan could be obtained for further evaluation. 3. Degenerative facet joint disease at L5-S1.
== END 2023-11-17 11:32 | disposition home or self-care (01) ==
LOC: HO.HMGCX 11:31
PROVIDERS: PCP Internal Medicine; Visit Provider Student in an Organized Health Care Education/Training Program
DX: M47.816 Spondylosis without myelopathy or radiculopathy, lumbar region (principal)
CPT/HCPCS: 72110

== ENCOUNTER 2023-11-22 12:51 | Outpatient (REF) | payer OTHER, SELFPAY ==
[2023-11-22 16:07] LABS: MANUAL DIFF FLAG NO
[2023-11-22 16:15] LABS: Basophils Percent Auto 0.7 % (0-2); Eosinophils Absolute Auto 0.1 X10*3/uL (0.0-0.4); Eosinophils Percent Auto 1.2 % (0-4); Hematocrit 43.1 % (37.0-47.0); Hemoglobin 14.5 g/dl (12.0-16.0); Imm Gran Abs Auto 0.02 X10*3/uL (0.00-0.03); Imm Gran Pct Auto 0.5 % (0.0-0.4); Lymphocytes Percent Auto 23.8 % (20-40); Mean Corpuscular HGB Conc 33.6 g/dl (31.0-35.0); Mean Corpuscular Hemoglobin 30.5 pg (27.0-33.0); Mean Corpuscular Volume 90.7 fL (80.0-98.0); Monocytes Absolute Auto 0.3 X10*3/uL (0.1-1.2); Monocytes Percent Auto 6.2 % (2-11); Neutrophils Absolute Auto 2.9 x10*3/uL (2.0-8.3); Neutrophils Percent Auto 67.6 % (45-73); Platelet Count 230 X10*3/uL (160-400); Red Blood Count 4.75 X10*6/uL (4.20-5.50); White Blood Count 4.3 X10*3/uL (4.8-10.8)
[2023-11-22 16:22] LABS: Estimated Average Glucose 100 mg/dL; Hemoglobin A1c % 5.1 % (<6.0)
[2023-11-22 16:51] LABS: Alanine Aminotransferase 20 U/L (0-31); Albumin Level 4.2 g/dL (3.5-5.0); Alkaline Phosphatase 62 U/L (39-117); Anion Gap 13 (12-20); Aspartate Amino Transferase 19 U/L (5-31); Bilirubin Total 0.6 mg/dL (0.0-1.0); Blood Urea Nitrogen 10 mg/dL (9-16); Calcium 9.7 mg/dL (8.4-10.2); Carbon Dioxide 26 mmol/L (22-29); Chloride 108 mmol/L (96-108); Cholesterol 259 mg/dL (<200); Estimated Glomerular Filt Rate > 60; Glucose Random 89 mg/dL (60-115); HDL Cholesterol 57 mg/dL (>40); LDL Cholesterol Calculated 179 mg/dL (<100); Potassium 4.1 mmol/L (3.3-5.1); Sodium 143 mmol/L (135-145); Total Protein 7.5 g/dL (6.5-8.0); Triglycerides 116 mg/dL (<150)
[2023-11-22 16:57] LABS: Osmolality, Serum 301 mosm/kg (281-305)
[2023-11-22 17:00] LABS: Osmolality Urine 793 mosm/kg (373-1093)
[2023-11-22 17:07] LABS: Thyroid Stimulating Hormone 1.98 uIU/mL (0.32-4.0)
== END 2023-11-22 12:52 | disposition home or self-care (01) ==
LOC: HO.HMGCLDS 12:51
PROVIDERS: PCP Internal Medicine; Visit Provider Internal Medicine
DX: R19.7 Diarrhea, unspecified (principal); R35.89 Other polyuria; R63.1 Polydipsia
CPT/HCPCS: 36415; 80053; 80061; 83036; 83930; 83935; 84443; 85025

== ENCOUNTER 2023-12-07 11:30 | Outpatient (AMB) | payer OTHER, SELFPAY ==
--- NOTE | 2023-12-07 11:34 | MHC.OFFVIS ---
Vital Signs 12/07/23 11:49 Height 5 ft 5 in Weight 149 lb BMI 24.8 BP 95/58 L Blood Pressure Location Lt brachial Position Sitting Pulse 85 Intake Visit Reasons: 3 Month Follow up Intake Note: Patient follow up for GERD. 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: No Accompanied by: Self / Same As Patient Allergies promethazine [From PHENERGAN] Allergy (Severe, Verified 12/07/23 11:34) SWELLING latex [LATEX] Allergy (Intermediate, Verified 12/07/23 11:34) RASH procaine [From NOVOCAIN] Allergy (Intermediate, Verified 12/07/23 11:34) SLEEPINESS ANTIEMETIC Allergy (Intermediate, Uncoded 11/17/22 11:17) TONGUE SWELLING Medication List - Last Reconciled 12/07/23 by Javed Gomez MD omeprazole 40 mg PO DAILY 30 days valacyclovir 500 mg PO DAILY HPI HPI 3 Month Follow up: Details: GI CLINIC VISIT FOR THIS 53-YEAR-OLD FEMALE FOR FOLLOW-UP OF GERD AND ATYPICAL CHEST PAIN ?CHRONIC ILLNESSES:?Fibromyalgia, depression, Cardiac arrhythmia, carpal tunnel syndrome, Gastroesophageal reflux disease, esophagitis presence not specified [facility] REVIEWED. celiac sprue serologies and H Pylori antibody were negative in 2012. ?IMAGING STUDIES: 12/04/19 ABDOMINAL ULTRASOUND WAS NORMAL. ?10/09 UPPER GI SHOWED: ? On placing patient supine and prone lying there is increased gastric ? secretions and flocculation of barium suggestive of hyperacidity. No ? mucosal ulcerations seen. There are a few erosions noted in the ? gastric mucosa. Visualized duodenal bulb and the sweep is normal. The ? course, caliber and peristalsis of stomach is normal. Mild ? gastroesophageal reflux was seen during the exam. There is no hiatal hernia. ? ENDOSCOPIC STUDIES: 06/07 EGD SHOWED ? A. Gastric biopsies - Gastric antral and fundic-type mucosa with very mild chronic gastritis. ? - An immunostain for Helicobacter pylori is negative. ? B. Gastric nodule, biopsy: - Gastric antral-type mucosa with mild chronic gastritis. ? - No submucosal tissue present to assess for a submucosal nodule. ? C. Distal esophagus, biopsies: - Gastric cardiac-type mucosa with mild chronic inflammation. ? - There is no evidence of Escoto's esophagus. ?TODAY'S VISIT Patient cc: acid reflex with burning sensation on and off, soft stool and throat feeling close and she is been having swallowing problem Has not been taking Omeprazole. She was taking probiotic which was helping initially with heartburn, gas and bloating. Now having recurrent symptoms since she is unable to find that probiotic any more. Took Omeprazole 4 times in the past month. Heartburn has gotton worse - unsure if related to menopause. Feels fine if she does not eat. All types of food can cause symptoms. Noted chest pressure again a few days ago - like someone is squeezing a pressure hose and it takes her breath away. Unable to have the event monitor due to being allergic to the tape. Planning to do stool cologuard for colon cancer screening. PAST VISIT Denies any change in her symptoms - continuing to have heartburn. Tried Omeprazole 40 mg given to her by her sister while she was visiting her and found it helpful [place] [facility] [place] and procedure was discontinued since the catheter could not be passed and the water she was given to drink came out of her nostrils. Scheduled to have a 30 day event monitor on 11/15/22 for evaluation of passing out spells. Still having a lot of heartburn. Sometimes she has profuse sweating - not always associated with the heartburn. She was taking the Dexilant which was not helping She has been taking a probiotic (stop & shop brand) and unclear if it is helping Has not been feeling that hungry since she started taking the probiotics. Has episodes where she feels she is ready to pass out Gets a tunnel vision like she is about to pass out, gets anxious. A couple of times she had palpitations associated with above episodes. Her arms are falling asleep frequently. Has a tingling sensations in her shoulders. Had chest pains lasting 1-2 min while she was in a grocery store - 2 weeks Feels she is not getting enough oxygen to her brain Also complains of easy bruising Feels she may have a problem with her circulation. I feel lousy since Monday. Hurts to breath behind her left breast - unable to move. Having fever with chills and sweating, nasal congestion. It hurts to cough or sneeze. Tried heat pads on the back, soaking in the tub and fever reducing medications. Pt states more gas than usual but other than that i don't have any Sx. ?Stopped taking Dexilant and Valcyclovir begining of Sep. Does not have as much heartburn and has noted gas. Did not have much gas when she was taking Dexilant. Has to change her diet due to high cholesterol Stopped taking medications for Herpes, notes pain in the back of her neck area and spine Gets bad HAs. Has increased her water intake Scheduled for an Echo on 11/06/20 ? She went to see her PCP for a Physical and had lab tests Started on a statin for high cholesterol. Feels extremely tired, SOB on climbing stairs and feels dizzy and requesting cardiology evaluation. Continues to get heartburn despite taking Dexilant and taking a bland diet and keeping HOB elevated at night. Heartburn can be any time of the day or night. Noted diarrhea for the past 2 days - thinks it may be related to using statin. Feels she is a high anxiety person with increased stress. Denies known family history of heart disease. Dad has high cholesterol. Feels her circulation is poor from her knees down. When she squats down and gets up too fast, she feels lightheaded (noted some sweating yesetrday) and notes palpitations and heart rate was 118. Continues to have her menstrual?cycle PFSH Medical History Carpal tunnel syndrome GERD (gastroesophageal reflux disease) Surgical History History of breast surgery Hx of endoscopy Family History Father History of high cholesterol Arthritis Enlarged prostate Mother Alive and well Social History Household Members: None Patient Tobacco Use Status: Never used Tobacco Review of Systems Const All systems reviewed & are unremarkable except as noted in HPI and below Physical Exam Vital Signs: Last Vital Signs Pulse 85 12/07/23 11:49 BP 95/58 L 12/07/23 11:49 BMI result Body Mass Index 24.8 Const General: healthy appearing and no acute distress Nutritional Appearance: average body habitus Orientation/consciousness: patient oriented x3 Limitations: no limitations HEENT Head: Yes normal to inspection Ears: hearing grossly normal bilaterally Eyes Sclerae: sclerae normal Pupils: Equal, round and reactive pupils present Neck Neck: Yes normal visual inspection Chest Chest palpation & inspection: normal inspection of the chest Resp Effort & Inspection: normal respiratory effort Auscultation: clear to auscultation bilaterally Cardio Palpation: normal PMI Rate: regular rate Rhythm: regular rhythm Heart sounds: S1 normal heart sound present, S2 normal heart sound present and no murmurs GI Palpation (GI): Soft to palpation, nontender and No hepatosplenomegaly present Auscultation: normal bowel sounds Rectal Exam - Female: deferred Skin General skin exam: no rashes or lesions noted Neuro General: patient oriented x3, gait normal and moves all extremities Cranial nerves: Yes Equal, round and reactive pupils present Psych Appearance: grossly normal Mental Status: mental status grossly normal Assessment & Plan Assessment & Plan (1) GERD (gastroesophageal reflux disease): Code(s): K21.9 - Gastro-esophageal reflux disease without esophagitis Category: Medical (2) Chest pain, atypical: Comment: Burning CP due to GERD as well as squeezing CP. Stress test did not show any abnormalities. She was able to exercise for 5 1-1/2 minutes. Her previous discomfort was at rest. I think likely cause for her discomfort is GERD. Code(s): R07.89 - Other chest pain Category: Medical (3) Upper abdominal pain: Code(s): R10.10 - Upper abdominal pain, unspecified Category: Medical (4) Diarrhea: Code(s): R19.7 - Diarrhea, unspecified Category: Medical Plan 53 YF with fibromyalgia, depression, Cardiac arrhythmia and carpal tunnel syndrome followed in GI for GERD and atypical chest pain. EGD in 05/2018 showed laryngeal changes suggestive of LPRD, and a 2 cms bengn appearing nodule in antrum/pre-pyloric area with central umblication. Gastric biopsies showed mild gastritis without H pylori. Biopsies obtained from the distal esophagus were negative for Escoto's. Patient was referred to [facility] to be evaluated with possible EUS with FNA. After checking with [facility], Dr Romero felt that an EUS with FNA was not necessary at that time. Intermittent early satiety suggestive of non-ulcer dyspepsia versus idiopathic gastroparesis. Patient was advised a trial of Pepcid and Carafate after a previous visit and is not taking at present. Patient was referred to cardiology for evaluation of orthostatic dizziness, continuing intermittent chest pain and dyspnea on exertion and increased cholesterol Cardiology evaluation: Burning CP due to GERD as well as squeezing CP.? Stress test did not show any abnormalities.? She was able to exercise for 5 1-1/2 minutes.? Her previous discomfort was at rest. I think likely cause for her discomfort is GERD. Plan - Juan J Rolle MD: Have reassured her currently.? If her symptoms persist or GI feels that she needs further workup then we will pursue a coronary CTA.? Currently her symptoms seem mostly related to gastroesophageal reflux disease. 10/06/22 Pt had a failed attempt at [facility] for esophageal manometry due to inability to pass the manometry catheter. She was prescribed Omeprazole 40 mg daily for GERD If her symptoms do not resolve, she will be scheduled for a GES, EGD with [facility] and to follow-up on gastric nodule 12/07/23 Has not been taking Omeprazole. She was taking probiotic which was helping initially with heartburn, gas and bloating. Now having recurrent symptoms since she is unable to find that probiotic any more. Took Omeprazole 4 times in the past month. Heartburn has gotton worse - unsure if related to menopause. Feels fine if she does not eat. All types of food can cause symptoms. Noted chest pressure again a few days ago - like someone is squeezing a pressure hose and it takes her breath away. Unable to have the event monitor due to being allergic to the tape. Planning to do stool cologuard for colon cancer screening Pt advised to schedule EGD with [facility] (evaluation for GERD with atypical chest pain, FU of gastric nodule) [place] [facility] [place] Hyoscyamine for chest pain - pt states pain usually resolves fairly quickly in seconds to minutes and she may not be able to tell if medication is helpful in alleviating the pain. FU appointment in GI in 6 month after EGD Medications: New hyoscyamine sulfate 0.25 mg (2 x 0.125 mg) PO TID-QID PRN 20 tabs 1RF Atypical chest pain 60 days K21.9 - Gastro-esophageal reflux disease without esophagitis, R07.89 - Other chest pain
[2023-12-07 11:49] VITALS: BP 95/58; PULSE 85; BMI 24.8
== END 2023-12-07 13:58 | disposition home or self-care (01) ==
PROVIDERS: PCP Internal Medicine; Visit Provider Internal Medicine Gastroenterology
DX: K21.9 Gastro-esophageal reflux disease without esophagitis (principal); R07.89 Other chest pain; R10.10 Upper abdominal pain, unspecified; R19.7 Diarrhea, unspecified
CPT/HCPCS: 99214

== ENCOUNTER → 2023-12-07 11:30 | Outpatient (BNVA) | payer OTHER, SELFPAY | PROVIDERS: PCP Internal Medicine; Visit Provider Internal Medicine Gastroenterology | DX: K21.9 Gastro-esophageal reflux disease without esophagitis (principal); R10.10 Upper abdominal pain, unspecified; R19.7 Diarrhea, unspecified; R07.89 Other chest pain | CPT/HCPCS: 99212 ==

== ENCOUNTER → 2024-02-14 09:15 | Outpatient (BNV) | payer OTHER, SELFPAY | PROVIDERS: PCP Internal Medicine; Visit Provider Radiology Diagnostic Radiology | DX: Z12.31 Encounter for screening mammogram for malignant neoplasm of breast (principal) | CPT/HCPCS: 77063; 77067 ==

== ENCOUNTER 2024-02-14 09:17 | Outpatient (REF) | payer OTHER, SELFPAY | END 2024-02-14 09:18 | disposition home or self-care (01) | LOC: HO.MAMMO 09:17 | PROVIDERS: PCP Internal Medicine; Visit Provider Student in an Organized Health Care Education/Training Program | DX: Z12.31 Encounter for screening mammogram for malignant neoplasm of breast (principal) | CPT/HCPCS: 77063; 77067 ==

== ENCOUNTER 2024-04-04 11:09 | Outpatient (REF) | payer OTHER, SELFPAY ==
[2024-04-04 13:31] LABS: Alanine Aminotransferase 15 U/L (0-31); Albumin Level 4.5 g/dL (3.5-5.0); Alkaline Phosphatase 64 U/L (39-117); Anion Gap 10 (12-20); Aspartate Amino Transferase 18 U/L (5-31); Bilirubin Total 0.6 mg/dL (0.0-1.0); Blood Urea Nitrogen 14 mg/dL (9-16); Calcium 9.4 mg/dL (8.4-10.2); Carbon Dioxide 27 mmol/L (22-29); Chloride 109 mmol/L (96-108); Cholesterol 242 mg/dL (<200); Estimated Glomerular Filt Rate > 60; Glucose Random 92 mg/dL (60-115); HDL Cholesterol 62 mg/dL (>40); LDL Cholesterol Calculated 165 mg/dL (<100); Potassium 4.4 mmol/L (3.3-5.1); Sodium 142 mmol/L (135-145); Total Protein 7.6 g/dL (6.5-8.0); Triglycerides 75 mg/dL (<150)
== END 2024-04-04 11:10 | disposition home or self-care (01) ==
LOC: HO.HMGCLDS 11:09
PROVIDERS: PCP Internal Medicine; Visit Provider Internal Medicine
DX: Z00.00 Encounter for general adult medical examination without abnormal findings (principal); E78.00 Pure hypercholesterolemia, unspecified; N95.1 Menopausal and female climacteric states; R63.1 Polydipsia
CPT/HCPCS: 36415; 80053; 80061

== ENCOUNTER 2024-11-21 11:32 | Outpatient (REF) | payer OTHER, SELFPAY ==
--- OUTSIDE RECORDS SUMMARY | 2024-11-21 12:51 | XMS_ITS | Clinical Summary ---
Author Organization [facility] Address [address] [place] [address] [address] [place] [address] Phone Care Team Providers Care Sports Recruiter Name Role Phone Liberty Blas MD Primary Care Provider Allergies Active Allergy Reactions Criticality Noted Date Comments Latex Rash Low 11/16/2020 Procaine 11/16/2020 Sleepiness Promethazine Swelling 11/16/2020 Medications No known medications Active Problems Problem Noted Date Diagnosed Date Polyuria 07/26/2023 Resolved Problems Problem Noted Date Diagnosed Date Resolved Date Gastroesophageal reflux disease 11/16/2020 11/16/2020 Family History Medical History Relation Comments Hypertension Father Rheum arthritis Father Relation Status Comments Father Social History Tobacco Use Types Packs/Day Years Used Date Smoking Tobacco: Never Smokeless Tobacco: Never Alcohol Use Standard Drinks/Week Comments Never 0 (1 standard drink = 0.6 oz pur e alcohol) Comments Unknown Sex and Gender Information Value Date Recorded Sex Assigned at Not on file Legal Sex Female 2:49 PM EST Gender Identity Not on file Sexual Orientation Not on file Last Filed Vital Signs Vital Sign Reading Time Taken Comments Blood Pressure 110/62 07/26/2023 10:04 AM EST Pulse 90 07/26/2023 10:04 AM EST Temperature - - Respiratory Rate - - Oxygen Saturation 98% 07/26/2023 10:04 AM EST Inhaled Oxygen Concentration - - Weight 66.4 kg (146 lb 6.4 oz) 07/26/2023 10:04 AM EST Height - - Body Mass Index - - Plan of Treatment Health Maintenance Due Date Last Done Comments Breast Cancer Screening 1970 Pneumococcal Vaccine: Pediat rics (0 to 5 Years) and At-Risk Patients (6 to 64 Years) (1 of 2 - PCV) 1976 Hepatitis B Vaccine (1 of 3 - 19+ 3-dose series) 08/09 Colorectal Cancer Screening: Annual FOBT 2019 Colorectal Cancer Screening: Colonoscopy 2019 Colorectal Cancer Screening: Sigmoidoscopy 2019 Influenza Vaccine (#1) 2024 Insurance Care Teams Sports Recruiter Relationship Specialty Start Date End Date Liberty Blas MD [address] [place] [address] PCP - General Internal Medicine 09/24/20
--- OUTSIDE RECORDS SUMMARY | 2024-11-21 12:51 | XMS_ITS | Data Portability ---
Author Organization [place] [facility], Allergy Address [address] [place] [phone] Care Team Providers Care Bank Credit Card Collection Clerk Name Role Phone ROBERTO BARKLEY Primary Care Provider [phone] Assessment No assessment recorded. Plan of Treatment Reminders Order Date Submit Date Provider Last Modified By Organization Details Last Modified Time Details Appointments None record ed. Lab None record ed. Referral None record ed. Procedures None record ed. Surgeries None record ed. Imaging None record ed. Medication Orders None record ed. Patient TargetsNo targets recorded. Patient InstructionsNo instructions recorded. Reason for Referral None Reported. Results Created Date Observation Date Name Description Value Unit Range Abnormal Flag Note LastModifiedBy Organization Detail LastModifiedTime 07/10/20 24 12/15/2023 US, neck, soft tissu e No observ ation record ed. [email or web address] Not Available 06/22 16:02:09 Result Notes None recorded. Problems Name Problem SNOMED Code Status Onset Date Resolution Date Notes Provider Name and Address Organization Details Recorded Time Migraine 39590608 Active 2016 Migraine, unspecifie d, not intractabl e, without status migrainosu s; Note: Date Diagnosed: 10/05/2016 12:29 PM (G43.909) Not Available [facility] 4 03:10:26 Fibromyal dana 070336466 Active 2016 Fibromyalg ia; Note: Date Diagnosed: 10/05/2016 12:28 PM (M79.7) Not Available [facility] 4 03:10:25 Localized infection of skin AND/OR subcutane ous tissue 003619677 Active 2016 Local infection of the skin and subcutaneo us tissue, unspecifie d; Note: Date Diagnosed: 10/05/2016 12:33 PM (L08.9) , Occipital scalp Not Available [facility] 4 03:10:26 Disorder of nasal sinus 0590279 Active 2019 Other specified disorders of nose and nasal sinuses; Note: Date Diagnosed: 05/25/2020 10:26 AM (J34.89) Not Available [facility] 4 03:10:25 Disorder of the nose 11747204 Active 2019 Other specified disorders of nose and nasal sinuses; Note: Date Diagnosed: 05/25/2020 10:26 AM (J34.89) Not Available [facility] 4 03:10:25 Generaliz ed enlarged lymph nodes 472936310 Active 2016 Lymphadeno sultana NOS; Note: Date Diagnosed: 10/05/2016 12:30 PM (R59.1) Not Available [facility] 4 03:10:25 Mass of neck 268460167 Active 2023 CHRISSY GERONIMO MD [address] [place] [address], [place], [phone] , [facility] 4 15:54:27 Anterior epistaxis 677224481 Active 2023 CHRISSY GERONIMO MD [address] [place] [address], [place], [phone] , [facility] - [facility] 4 15:57:39 Problem Notes None recorded. Procedures Surgical History Date Name Laterality Status Provider Name and Address Organization Details Recorded Time 07/10/2024 NasalEndos copy_DP completed CHRISSY GERONIMO MD [address] [place] [address], [phone], [facility] - [facility] 07/10/2024 15:58:06 Imaging Results Imaging Date Name Status LastModified by Organiz ation Details LastModified Time 12/15/2023 US, neck, soft tissue completed [email or web address] Information not available 07/10/2024 16:02:09 Procedure Notes None recorded. Medical Equipment None Reported. Allergies Allergen ID Allergen Name Allergen Category Reaction Reaction Severity Criticality Documentation Date Start Date Code Code System Note Provider Name and Address Organization Details Recorded Time 563844 Latex (substanc e) environme nt,medica tion Not available Not available Not available 07/10/2024 70066 8007 SNOMED Bryannannette Shaancitenati fermin [place] [facility] 4 15:37:12 628512 promethaz ine medicatio n Not available Not available Not available 07/10/2024 8745 RxNorm Bryannannette Shaancitell arley fermin [place] [facility] 4 15:37:42 102060 procaine medicatio n Not available Not available Not available 07/10/2024 8701 RxNorm Bryannannette Rancitell arley fermin [place] [facility] 4 15:37:54 Medications Name Sig Start Date Stop Date Status Note LastModified by Organization Details LastModified Time celecoxib 200 mg capsule TAKE 1 CAPSULE BY MOUTH TWICE DAILY AFTER A MEAL active Not Available Not Available No t Available ketoconazo le 2 % shampoo APPLY SHAMPOO TO SCALP TOPICALLY AND LEAVE ON FOR 5 MINUTES AND THEN WASH OFF. USE TWICE A WEEK active Not Available Not Available No t Available valacyclov ir 500 mg tablet 2019 active Medicatio n ID: [id number] Br and Name: valacyclo vir Send Method: E-Prescri bed Subs Allowed: subs OK Medica tionGener icName: valacyclo vir Not Available Not Available Not Available hyoscyamin e 0.125 mg sublingual tablet DISSOLVE 2 TABLETS IN MOUTH THREE TO FOUR TIMES DAILY NEEDED FOR ATYPICAL CHEST PAIN FOR 60 DAYS active Not Available Not Available No t Available betamethas one dipropiona te 0.05 % topical cream 2019 active Medicatio n ID: [id number] Br and Name: betametha sone dipropion ate Send Method: E-Prescri bed Subs Allowed: subs OK Medica tionGener icName: betametha sone dipropion ate Not Available Not Available Not Available hydrocorti sone 2.5 % topical cream APPLY CREAM TOPICALLY TO ITCHY AREAS ON FACE AND EARS TWICE DAILY NEEDED FOR FLARES. DECREASE USE SYMPTOMS IMPROVE active Not Available Not Available No t Available mupirocin 2 % topical ointment Apply 1 a small amount every eight hours 2019 active Medicatio n ID: [id number] Du ration Value: 14 Prescrib ed By Name: Yaakov Aquino Name: mupirocin Send Method: E-Prescri bed Subs Allowed: subs OK Specia l Instructi on: place in the nasal cavity 3 times daily after warm compresse s Medicat ionGeneri cName: mupirocin Not Available Not Available Not Available triamcinol one acetonide 0.1 % lotion APPLY LOTION TOPICALLY TO SCALP TWICE DAILY NEEDED FOR FLARES, DECREASE TO ONCE DAILY/ALEIDA RY OTHER DAY SYMPTOMS IMPROVE active Not Available Not Available No t Available fluocinoni de 0.05 % topical cream APPLY CREAM TOPICALLY TO ITCHY AREAS ON ARMS AND LEGS TWICE DAILY NEEDED FOR FLARES. DECREASE TO ONCE DAILY/ALEIDA RY OTHER DAY SYMPTOMS IMPROVE active Not Available Not Available No t Available betamethas one dipropiona te 0.05 % lotion APPLY LOTION TOPICALLY TO ITCHY AREAS ON SCALP TWICE DAILY NEEDED FOR FLARES, DECREASE TO ONCE DAILY/ALEIDA RY OTHER DAY SYMPTOMS IMPROVE active Not Available Not Available No t Available naproxen 500 mg tablet TAKE 1 TABLET BY MOUTH ONCE OR TWICE DAILY WITH FOOD FOR THUMB PAIN active Not Available Not Available No t Available cyclobenza jonnathan 5 mg tablet TAKE 1 TABLET BY MOUTH TWICE DAILY NEEDED active Not Available Not Available No t Available rosuvastat in 5 mg tablet TAKE 1 TABLET BY MOUTH ONCE DAILY active Not Available Not Available No t Available duloxetine 20 mg capsule,de layed release TAKE 1 CAPSULE BY MOUTH ONCE DAILY FOR NEUROPATH IC PAIN active Not Available Not Available No t Available Dexilant 30 mg capsule, delayed release 2019 active Medicatio n ID: [id number] Br and Name: Dexilant Send Method: E-Prescri bed Subs Allowed: subs OK Medica tionGener icName: Dexilant Not Available Not Available Not Available Vitals Date Recorded Body height Body mass index (BMI) Body weight Provider Name and Address Organization Details Last Updated DateTime 07/10/2024 165.1 cm 24.1 kg/m2 75288.89 g Kareem Taylor [place] [facility] 07/10/2024 15:36:37 Social History None recorded. Functional Status None recorded. Mental Status None recorded. Family History Nothing Reported. Medical History No medical history recorded. Gynecological HistoryNo gynecological history recorded. Obstetrics History GPAL:G 0 P 0 0 0 0 Past Encounters Encounter ID Performer Location Encounter Start Date Encounter Closed Date Diagnosis/Indication Diagnosis SNOMED-CT Code Diagnosis ICD10 Code Diagnosis Note [id number] CHRISYS GERONIMO MD [facility] [address] [place] [address] 07/10/2024 15:13:24 07/10/2024 15:59:36 Mass of neck 302153217 R22.1 I don't feel an obvious neck mass. I have reassuranc e. She has a prominent carotid on the left but no tumors I could palpate. I discussed obtaining a CT to review but we agreed on observatio n since it has been stable. She will call with any progressio n of changes she notes in her neck. Larynx was normal on endoscopy. No tumors in oropharynx or larynx. Anterior epistaxis 07775 4002 R04.0 No active bleeding was seen on exam. Nasal cautery was deferred. We discussed the importance of nasal moisture preventing nosebleeds . Specifical ly we discussed using a saline spray daily, humidifier , and using vaseline with a finger at night applied to the septum. If there is an active bleed, I recommende d using Afrin and demonstrat ed applying pressure to the soft part of the nose. The patient understand s to not use Afrin if he does not have an active bleed. If there is continued bleeding I asked the patient to call and we will consider nasal cautery at follow up. Health Concerns Section Related Observation LastModified by Organization Detai ls LastModified Time None Recorded Concern Status LastModified by Organization Details LastModified Time None Recorded Advance Directives Directive None Recorded Payers Encounter Date Sequence Insurance Name Policy Number Policy Rai Covered Member ID Rai Member ID Guarantor Name 07/10/2024 1 [employer] (MEDICAID HMO) [id number] Haydee Garsia [id number] Haydee Garsia Notes Date Note Type Note Provider Name and Address Organization Details Recorded Time 07/10/2024 text/html Notes left neck swelling for the last year. It is not painful. Does not swell when she eats. Had an US 11/2023 which showed a 3.6cm left submandibular gland and adjacent non-enlarged lymph nodes. She has never smoked. IT has been stable for the last 6 months. She has a dry throat but denies pain in her throat and ears. Occasionally her throat is mildly sore. Notes occasional bloody nasal mucus. CHRISSY GERONIMO MD [address] [place] [address], [place], [phone], [place] [facility] 07/10/2024 15:58:50 OBGyn Episode No OBEpisode recorded.
[2024-11-21 14:07] LABS: Cholesterol 206 mg/dL (<200); HDL Cholesterol 54 mg/dL (>40); LDL Cholesterol Calculated 129 mg/dL (<100); Triglycerides 118 mg/dL (<150)
== END 2024-11-21 11:33 | disposition home or self-care (01) ==
LOC: HO.HMGCLDS 11:32
PROVIDERS: PCP Internal Medicine; Visit Provider Internal Medicine
DX: E78.00 Pure hypercholesterolemia, unspecified (principal); N95.1 Menopausal and female climacteric states; R07.89 Other chest pain; R63.1 Polydipsia
CPT/HCPCS: 36415; 80061

== ENCOUNTER 2024-12-24 11:40 | Outpatient (REF) | payer OTHER, SELFPAY ==
--- OUTSIDE RECORDS SUMMARY | 2024-12-24 13:20 | XMS_ITS | Clinical Summary ---
Author Organization [facility] Address [address] [place] [address] [address] [place] [address] Phone Care Team Providers Care Gleason Operator Name Role Phone Liberty Blas MD Primary Care Provider [phone] Allergies Active Allergy Reactions Criticality Noted Date [...] Last Done Comments Breast Cancer Screening 1970 Hepatitis B Vaccine (1 of 3 - 19+ 3-dose series) 08/09 Pneumococcal Vaccine: 50+ Years (1 of 2 - PCV) 989 Colorectal Cancer Screening: Annual FOBT 2019 Colorectal Cancer Screening: Colonoscopy 2019 Colorectal Cancer Screening: Sigmoidoscopy 2019 Influenza Vaccine (Season Ended) [address] [place] [address] Care Teams Gleason Operator Relationship Specialty Start Date End Date Liberty Blas MD [facility] [place] [phone] (Work) PCP - General Internal Medicine 09/24/20
--- OUTSIDE RECORDS SUMMARY | 2024-12-24 13:20 | XMS_ITS | Data Portability ---
Author Organization [place] [facility], Allergy Address [address] [place] [address] Care Team Providers Care Subscription Agent Name Role Phone ROBERTO BARKLEY Primary Care Provider [phone] Assessment No assessment recorded. Plan of Treatment [...] and Address Organization Details Recorded Time Migraine 41329478 Active 2016 Migraine, unspecifie d, not intractabl e, without status migrainosu s; Note: Date Diagnosed: 10/05/2016 12:29 PM (G43.909) Not Available [facility] 4 03:10:26 Fibromyal dana 979943687 Active 2016 Fibromyalg ia; Note: Date Diagnosed: 10/05/2016 12:28 PM (M79.7) Not Available [facility] 4 03:10:25 Localized infection of skin AND/OR subcutane ous tissue 005933710 Active 2016 Local infection of the skin and subcutaneo us tissue, unspecifie d; Note: Date Diagnosed: 10/05/2016 12:33 PM (L08.9) , Occipital scalp Not Available [facility] 4 03:10:26 Disorder of nasal sinus 7173167 Active 2019 Other specified disorders of nose and nasal sinuses; Note: Date Diagnosed: 05/25/2020 10:26 AM (J34.89) Not Available [facility] 4 03:10:25 Disorder of the nose 64565364 Active 2019 Other specified disorders of nose and nasal sinuses; Note: Date Diagnosed: 05/25/2020 10:26 AM (J34.89) Not Available [facility] 4 03:10:25 Generaliz ed enlarged lymph nodes 838774028 Active 2016 Lymphadeno sultana NOS; Note: Date Diagnosed: 10/05/2016 12:30 PM (R59.1) Not Available [facility] 4 03:10:25 Mass of neck 316172291 Active 2023 CHRISSY GERONIMO MD [address] [place] [address], [place], [address] , [facility] 4 15:54:27 Anterior epistaxis 253736375 Active 2023 CHRISSY GERONIMO MD [address] [place] [address], [place], [address] , [facility] - [facility] 4 15:57:39 Problem Notes None recorded. Procedures Surgical History Date Name Laterality Status Provider Name and Address Organization Details Recorded Time 07/10/2024 NasalEndos copy_DP completed CHRISSY GERONIMO MD [address] [place] [address], [address], [facility] - [facility] 07/10/2024 15:58:06 Imaging Results Imaging Date Name Status LastModified by Organiz ation Details LastModified Time 12/15/2023 US, neck, soft tissue completed [email or web address] Information not available 07/10/2024 16:02:09 Procedure Notes None recorded. Medical Equipment None Reported. Allergies Allergen ID Allergen Name Allergen Category Reaction Reaction Severity Criticality Documentation Date Start Date Code Code System Note Provider Name and Address Organization Details Recorded Time 975216 Latex (substanc e) environme nt,medica tion Not available Not available Not available 07/10/2024 35122 8007 SNOMED Bryannannette Shaancitenati fermin [place] - [facility] 4 15:37:12 274608 promethaz ine medicatio n Not available Not available Not available 07/10/2024 8745 RxNorm Bryannannette Shaancitell arley [place] - [facility] 4 15:37:42 471449 procaine medicatio n Not available Not available Not available 07/10/2024 8701 RxNorm Bryannannette Rancitell arley [place] - [facility] 4 15:37:54 Medications Name Sig Start [...] mg tablet 2019 active Medicatio n ID: [id number] Br and Name: valacyclo vir Send Method: [...] topical cream 2019 active Medicatio n ID: [id number] Br and Name: betametha sone dipropion ate [...] eight hours 2019 active Medicatio n ID: [id number] Du ration Value: 14 Prescrib ed By [...] delayed release 2019 active Medicatio n ID: [id number] Br and Name: Dexilant Send Method: E-Prescri bed Subs Allowed: subs [place] Medica tionGener icName: Dexilant Not Available Not Available Not Available Vitals Date Recorded Body height Body mass index (BMI) Body weight Provider Name and Address Organization Details Last Updated DateTime 07/10/2024 165.1 cm 24.1 kg/m2 87648.89 g Kareem Taylor [place] - [facility] 07/10/2024 15:36:37 Social History None recorded. Functional Status None recorded. Mental Status None recorded. Family History Nothing Reported. Medical History No medical history recorded. Gynecological HistoryNo gynecological history recorded. Obstetrics History GPAL:G 0 P 0 0 0 0 Past Encounters Encounter ID Performer Location Encounter Start Date Encounter Closed Date Diagnosis/Indication Diagnosis SNOMED-CT Code Diagnosis ICD10 Code Diagnosis Note [id number] CHRISSY GERONIMO MD [facility] [address] [place] [address] 07/10/2024 15:13:24 07/10/2024 15:59:36 Mass of neck 858641982 R22.1 I don't feel an obvious neck [...] tumors in oropharynx or larynx. Anterior epistaxis 76757 4002 R04.0 No active bleeding was seen [...] Rai Member ID Guarantor Name 07/10/2024 1 [facility] NET PLAN (MEDICAID HMO) [id number] Haydee Garsia [id number] Haydee Garsia Notes Date Note Type [...] occasional bloody nasal mucus. CHRISSY GERONIMO MD [address] [place] [address], [place], [address], [place] [facility] 07/10/2024 15:58:50 OBGyn Episode No OBEpisode recorded.
[2024-12-24 13:44] LABS: MANUAL DIFF FLAG NO
[2024-12-24 13:51] LABS: Basophils Percent Auto 0.8 % (0-2); Eosinophils Absolute Auto 0.1 X10*3/uL (0.0-0.4); Eosinophils Percent Auto 1.8 % (0-4); Hematocrit 42.5 % (37.0-47.0); Hemoglobin 13.9 g/dl (12.0-16.0); Imm Gran Abs Auto 0.01 X10*3/uL (0.00-0.03); Imm Gran Pct Auto 0.3 % (0.0-0.4); Lymphocytes Absolute Auto 1.1 X10*3/uL (1.2-4.9); Lymphocytes Percent Auto 28.2 % (20-40); Mean Corpuscular HGB Conc 32.7 g/dl (31.0-35.0); Mean Corpuscular Hemoglobin 29.9 pg (27.0-33.0); Mean Corpuscular Volume 91.4 fL (80.0-98.0); Mean Platelet Volume 11.1 fL (9.4-12.3); Monocytes Absolute Auto 0.3 X10*3/uL (0.1-1.2); Monocytes Percent Auto 7.4 % (2-11); Neutrophils Absolute Auto 2.4 x10*3/uL (2.0-8.3); Neutrophils Percent Auto 61.5 % (45-73); Platelet Count 201 X10*3/uL (160-400); Red Blood Count 4.65 X10*6/uL (4.20-5.50); White Blood Count 3.9 X10*3/uL (4.8-10.8)
[2024-12-24 14:17] LABS: Alanine Aminotransferase 21 U/L (0-31); Albumin Level 4.2 g/dL (3.5-5.0); Anion Gap 12 (12-20); Aspartate Amino Transferase 25 U/L (5-31); Bilirubin Total 0.6 mg/dL (0.0-1.0); Blood Urea Nitrogen 13 mg/dL (9-16); Calcium 9.1 mg/dL (8.4-10.2); Carbon Dioxide 26 mmol/L (22-29); Chloride 108 mmol/L (96-108); Estimated Glomerular Filt Rate > 60; Glucose Random 84 mg/dL (60-115); Potassium 4.1 mmol/L (3.3-5.1); Sodium 142 mmol/L (135-145); Total Protein 6.9 g/dL (6.5-8.0)
[2024-12-24 14:26] LABS: Thyroid Stimulating Hormone 1.71 uIU/mL (0.32-4.0)
[2024-12-24 18:18] LABS: Alkaline Phosphatase 67 U/L (39-117)
[2024-12-25 04:10] LABS: Follicle Stimulating Hormone 78.9 mIU/mL
== END 2024-12-24 11:41 | disposition home or self-care (01) ==
LOC: HO.HMGCLDS 11:40
PROVIDERS: PCP Internal Medicine; Visit Provider Internal Medicine
DX: Z00.00 Encounter for general adult medical examination without abnormal findings (principal); N95.1 Menopausal and female climacteric states; R07.89 Other chest pain
CPT/HCPCS: 36415; 80053; 83001; 84443; 85025

== ENCOUNTER 2025-02-26 10:09 | Outpatient (REF) | payer OTHER, SELFPAY ==
--- OUTSIDE RECORDS SUMMARY | 2025-02-22 23:59 | XMS_ITS | Continuity of Care Document ---
Author Organization [facility] Address [address] [place] [address] [address] [place] [address]- Care Team Providers Care Grease Buffer Name Role Phone Liberty Blas MD Primary Care Physician [phone] [place] [facility] [place]): [place]23[place] - 02/22/25 [facility] [address] [place] [address]- Attending Physician: Beth Aviles Admitting Physician: Beth Aviles Referring Physician: Admtr ArHarry Encounter Type: Triage Allergies, Adverse Reactions, Alerts Substance Criticality Severity Reaction Reaction Severity Status epinephrine-lidocaine Active Phenergan tongue numbness Acti ve Latex Rash Active Bactrim Active Medications celecoxib 200 mg oral capsule 0 Refills, Maintenance, 03/13/24 3:09:00 PM EDT, Partial fill upon patient request if the prescription is for a schedule II opioid drug. Start Date: 03/13/24 Status: Ordered Repeat number: 1 ketoconazole 2% topical shampoo 0 Refills, Maintenance, 03/13/24 3:10:00 PM EDT, Partial fill upon patient request if the prescription is for a schedule II opioid drug. Start Date: 03/13/24 Status: Ordered Repeat number: 1 naproxen 500 mg oral tablet 0 Refills, Maintenance, 03/13/24 3:10:00 PM EDT, Partial fill upon patient request if the prescription is for a schedule II opioid drug. Start Date: 03/13/24 Status: Ordered Repeat number: 1 Pantoprazole Daily, 0 Refills, Maintenance, 04/03/19 10:53:37 AM EDT Start Date: 04/03/19 Status: Ordered Repeat number: 1 rosuvastatin 5 mg oral tablet 0 Refills, Maintenance, 03/13/24 3:10:00 PM EDT, Partial fill upon patient request if the prescription is for a schedule II opioid drug. Start Date: 03/13/24 Status: Ordered Repeat number: 1 triamcinolone 0.1% topical lotion 0 Refills, Maintenance, 03/13/24 3:10:00 PM EDT, Partial fill upon patient request if the prescription is for a schedule II opioid drug. Start Date: 03/13/24 Status: Ordered Repeat number: 1 valacyclovir 1 gm oral tablet 1 tablet = 1 Gm, By Mouth, Daily, # 30 tablet, 6 Refills, Maintenance, 06/14/21 1:27:00 PM EDT, [facility], Partial fill upon patient request if the prescription is for a schedule II opioid drug., 164, cm, 06/14/21 13:25:00 EDT, Height Start Date: 06/14/21 Status: Ordered Quantity: 30.0 Unit: tablet Repeat number: 7 valACYclovir 500 mg oral tablet 500 mg, 1, tablet, By Mouth, Daily, # 30 tablet, Refills 5, Tot. Refills 5, Maintenance, 11/27/20 8:56:00 AM EDT, Route to Pharmacy Electronically, [facility], Partial fill upon patient request if the prescription is for a schedule II opioid drug., 164, cm, 11/27/20 8:17:00 EDT, Height, 63.4, kg, 04/03/19 10:50:00 EDT, Dry Weight Start Date: 11/27/20 Status: Ordered Quantity: 30.0 Unit: tablet Repeat number: 6 Problem List Condition Confirmation Course Effective Dates Status H ealth Status Informant GERD (gastroesophageal reflux disease) Confirmed Active Hyperlipidemia Confirmed Active Pain in right shoulder Confirmed Active Social History Social History Type Response Smoking Status Never (less than 100 in lifetime); Tobacco user in household: No entered on: 04/03/19 Sex Sex Representation Female (finding) Patient Care team information Care Team Personnel Name: Liberty Blas MD Position: [facility] Outreach Member Role: PCP Address: [address] [place] [address] [address] [place] [address]- Telecom: Name: Althea Schumacher MD Position: [facility] SEPTIC PUMP TRUCK DRIVER MD Member Role: Lifetime SEPTIC PUMP TRUCK DRIVER Physician Address: [address] [place] [address] [facility] [place] [address]- Telecom: Care Team Related Persons Name: RAMEZ PAUL Insurance Providers Guarantor name: [facility] Information #: 1 Payer: [employer] [facility] Payer Identifier: ALISA Member Number: [id number] Group Number: ALISA Subscriber Identifier: [id number] Relationship to Subscriber: self Coverage Type: Medicaid (Managed Care) Coverage Verification Date: NA Telecom: NA Address: NA
--- OUTSIDE RECORDS SUMMARY | 2025-02-26 10:53 | XMS_ITS | Data Portability ---
Author Organization [place] [facility], Allergy Address [address] [place] [address] Care Team Providers Care Size Painter Name Role Phone ROBERTO BARKLEY Primary Care Provider [phone] Assessment No assessment recorded. Plan of Treatment [...] and Address Organization Details Recorded Time Migraine 11258004 Active 2016 Migraine, unspecifie d, not intractabl e, without status migrainosu s; Note: Date Diagnosed: 10/05/2016 12:29 PM (G43.909) Not Available [facility] 4 03:10:26 Fibromyal dana 629984131 Active 2016 Fibromyalg ia; Note: Date Diagnosed: 10/05/2016 12:28 PM (M79.7) Not Available [facility] 4 03:10:25 Localized infection of skin AND/OR subcutane ous tissue 264143581 Active 2016 Local infection of the skin and subcutaneo us tissue, unspecifie d; Note: Date Diagnosed: 10/05/2016 12:33 PM (L08.9) , Occipital scalp Not Available [facility] 4 03:10:26 Disorder of nasal sinus 2847967 Active 2019 Other specified disorders of nose and nasal sinuses; Note: Date Diagnosed: 05/25/2020 10:26 AM (J34.89) Not Available [facility] 4 03:10:25 Disorder of the nose 59257027 Active 2019 Other specified disorders of nose and nasal sinuses; Note: Date Diagnosed: 05/25/2020 10:26 AM (J34.89) Not Available [facility] 4 03:10:25 Generaliz ed enlarged lymph nodes 352355734 Active 2016 Lymphadeno sultana NOS; Note: Date Diagnosed: 10/05/2016 12:30 PM (R59.1) Not Available [facility] 4 03:10:25 Mass of neck 762288523 Active 2023 CHRISSY GERONIMO MD [address] [place] [address], [place], [address] , [facility] 4 15:54:27 Anterior epistaxis 553948879 Active 2023 CHRISSY GERONIMO MD [address] [place] [address], [place], [address] , [facility] [place] 4 15:57:39 Problem Notes None recorded. Procedures Surgical History Date Name Laterality Status Provider Name and Address Organization Details Recorded Time 07/10/2024 NasalEndos copy_DP completed CHRISSY GERONIMO MD [address] [place] [address], [place], [address], [facility] [place] 07/10/2024 15:58:06 Imaging Results None recorded. Procedure Notes None recorded. Medical Equipment None Reported. Allergies Allergen ID Allergen Name Allergen Category Reaction Reaction Severity Criticality Documentation Date Start Date Code Code System Note Provider Name and Address Organization Details Recorded Time 515406 Latex (substanc e) environme nt,medica tion Not available Not available Not available 07/10/2024 49313 8007 SNOMED Ginnette Rancitenati arley [place], [place] - [facility] 4 15:37:12 059779 promethaz ine medicatio n Not available Not available Not available 07/10/2024 8745 RxNorm Kareem Gardunocitenati [place], [place] - [facility] 4 15:37:42 984658 procaine medicatio n Not available Not available Not available 07/10/2024 8701 RxNorm Kareem Gardunocitenati [place], [place] - [facility] 4 15:37:54 Medications Name Sig Start [...] mg tablet 2019 active Medicatio n ID: [id number] Br and Name: valacyclo vir Send Method: [...] topical cream 2019 active Medicatio n ID: [id number] Br and Name: betametha sone dipropion ate [...] eight hours 2019 active Medicatio n ID: [id number] Du ration Value: 14 Prescrib ed By [...] delayed release 2019 active Medicatio n ID: [id number] Br and Name: Dexilant Send Method: E-Prescri bed Subs Allowed: subs [place] Medica tionGeinderjit icName: Dexilant Not Available Not Available Not Available Vitals Date Recorded Body height Body mass index (BMI) Body weight Provider Name and Address Organization Details Last Updated DateTime 07/10/2024 165.1 cm 24.1 kg/m2 31143.89 g Kareem Taylor [place] - [facility] 07/10/2024 15:36:37 Social History None recorded. Functional Status None recorded. Mental Status None recorded. Family History Nothing Reported. Medical History No medical history recorded. Gynecological HistoryNo gynecological history recorded. Obstetrics History GPAL:G 0 P 0 0 0 0 Past Encounters Encounter ID Performer Location Encounter Start Date Encounter Closed Date Diagnosis/Indication Diagnosis SNOMED-CT Code Diagnosis ICD10 Code Diagnosis Note [id number] CHRISSY GERONIMO MD [facility] [address] [place] [address] 07/10/2024 15:13:24 07/10/2024 15:59:36 Mass of neck 244778328 R22.1 I don't feel an obvious neck [...] tumors in oropharynx or larynx. Anterior epistaxis 10187 4002 R04.0 No active bleeding was seen [...] Recorded Advance Directives Directive None Recorded Payers Insurance Date Sequence Insurance Name Policy Number Policy Rai Covered Member ID Rai Member ID Guarantor Name 07/10/2024 1 [facility] NET PLAN (MEDICAID HMO) [id number] Haydee Garsia [id number] Haydee Garsia Notes Date Note Type [...] occasional bloody nasal mucus. CHRISSY GERONIMO MD [address] [place] [address], [place], [address], [place] [facility] 07/10/2024 15:58:50 OBGyn Episode No OBEpisode recorded.
== END 2025-02-26 10:10 | disposition home or self-care (01) ==
LOC: HO.MAMMO 10:09
PROVIDERS: PCP Internal Medicine; Visit Provider Internal Medicine
DX: Z12.31 Encounter for screening mammogram for malignant neoplasm of breast (principal)
CPT/HCPCS: 77063; 77067

== ENCOUNTER → 2025-02-26 10:15 | Outpatient (BNV) | payer OTHER, SELFPAY | PROVIDERS: PCP Internal Medicine; Visit Provider Internal Medicine | DX: Z12.31 Encounter for screening mammogram for malignant neoplasm of breast (principal) | CPT/HCPCS: 77063; 77067 ==